=== PATIENT | male | born 1965 | race Caucasian/White ===

== ENCOUNTER 2016-11-03 08:12 | Outpatient (CLI) ==
--- NOTE | 2016-11-04 09:33 | ECHO2D ---
Date of Exam: 11/03/16 Ordering Physician: MAGGIE FORDE Reason for Echo: ABNORMAL EKG M-Mode Normal Adult Results LV Dimensions Normal Adult Results AoV Opening excursions >1.6 >1.6 LVEDD-base- 3.5-5.8 3.3 Ao root dimensions 2.0-3.7 3.2 LVESD-base- 3.1-4.6 L. Atrium dimensions 1.9-3.8 4.2 Post. Wall thickness 0.8-1.1 1.7 IV septum (thickness) 0.7-1.2 1.6 Post. Wall excursion 0.72-1.3 NORMAL Septal motion NORMAL Systolic motion R. Ventricular cavity 1.5-2.0 NORMAL LVEF 60% 70% Paradoxical septal wall motion NORMAL 2-D : NORMAL VALVES--NORMAL LEFT VENTRICULAR CONTRACTILITY--ENLARGED LEFT ATRIAL CAVITY, NORMAL LEFT VENTRICLE CAVITY, NO EFFUSION, NO THROMBUS DOPPLER WITH COLOR FLOW: NORMAL VALVULAR FLOW INDICES, COLOR FLOW-TRIVIAL TRICUSPID REGURGITATION M-MODE: MV: NORMAL AV: NORMAL TV: NORMAL PV: CHAMBER SIZE: ENLARGED LEFT ATRIAL CAVITY WALL MOTION: NORMAL PERICARDIUM: NORMAL INTERPRETATION: 1. MODERATE LEFT VENTRICULAR HYPERTROPHY WITH ENLARGED LEFT ATRIAL CAVITY (4.2 CM) 2. NORMAL LEFT VENTRICULAR CONTRACTILITY 3. NORMAL VALVES 4. NORMAL DOPPLER 5. COLOR FLOW--TRIVIAL TRICUSPID REGURGITATION MTDD
== END 2016-11-03 08:13 | disposition home or self-care (01) ==
LOC: CAR 08:12
PROVIDERS: ATTEND Family Medicine
DX: R94.31 Abnormal electrocardiogram [ECG] [EKG] (principal)

== ENCOUNTER 2016-11-08 06:21 | Outpatient (CLI) ==
--- NOTE | 2016-11-08 08:36 | STRESSECHO ---
Date of Test: 11/08/16 Reason for Exam: ABNORMAL EKG,DM, HTN Ordering Physician: MAGGIE FORDE Current Medications: ATORVASTATIN,BYETTA, METFORMIN, GLUCOPHAGE, ZESTORETIC Physical Findings: S1, S2, NO S3 Target Heart Rate: 144/170 Resting EKG: SINUS RHYTHM, INCOMPLETE RIGHT BUNDLE BRANCH BLOCK STAGE MPH/GRADE HEART RATE BPM BLOOD PRESSURE mmhg RHYTHM S-T SEGMENT +/- UP DOWN SYMPTOMS,COMMENTS At Rest 90 145/90 SR X NONE 1 1.7/10% 130 160/95 SR X NONE 2 2.5/12% 3 3.4/14% 4 4.2/16% 5 5.0/18% Immediately after 148 SR X SHORT OF BREATH Durations of Exercise: 4:00 Maximum Heart Rate Reached: 112 Reason for Termination: SHORT OF BREATH 3 MINUTES POST EXERCISE: HR 112 BPM, BP 160/80 MMHG INTERPRETATION: 93% OXYGEN SATURATION WIT EXERCISE ON ROOM AIR METS 7.0 1. NO EVIDENCE OF ISCHEMIA BY ST-T WAVE 2. NO CHEST PAIN OR DISCOMFORT 3. BLOOD PRESSURE RESPONSE: BORDERLINE HYPERTENSION AT REST AND WITH EXERCISE 4. NO ARRHYTHMIAS NORMAL LEFT VENTRICULAR CONTRACTILITY--RESTING AND POST EXERCISE MTDD
--- NOTE | 2016-11-08 08:40 | ECHOSTRESS ---
Date of Exam: 11/05/16 Ordering Physician: MAGGIE FORDE Reason for Echo: ABNORMAL EKG, LVH, STRESS TEST--NO ISCHEMIA M-Mode Normal Adult Results LV Dimensions Normal Adult Results AoV Opening excursions >1.6 LVEDD-base- 3.5-5.8 Ao root dimensions 2.0-3.7 LVESD-base- 3.1-4.6 L. Atrium dimensions 1.9-3.8 Post. Wall thickness 0.8-1.1 IV septum (thickness) 0.7-1.2 Post. Wall excursion 0.72-1.3 Septal motion Systolic motion R. Ventricular cavity 1.5-2.0 LVEF 60% Paradoxical septal wall motion 2-D: NORMAL LEFT VENTRICULAR CONTRACTILITY--AT REST AND POST EXERCISE M-MODE: MV: AV: TV: PV: CHAMBER SIZE: WALL MOTION: NORMAL LEFT VENTRICULAR CONTRACTILITY--AT REST AND POST EXERCISE PERICARDIUM: INTERPRETATION: 1. NORMAL LEFT VENTRICULAR CONTRACTILITY--AT REST AND POST EXERCISE MTDD
== END 2016-11-08 06:22 | disposition home or self-care (01) ==
LOC: CAR 06:21
PROVIDERS: ATTEND Family Medicine
DX: R94.31 Abnormal electrocardiogram [ECG] [EKG] (principal)